=== PATIENT | female | born 1965 | race African-American/Black ===

== ENCOUNTER 2019-08-03 10:20 | Inpatient (IN) | payer OTHER ==
[2019-08-03] MEDS ORDERED: HYDROmorphone INJ1* 1 MG/ML SYRINGE IV SLOW PU ONE ×2 (10:40→13:59)
[2019-08-03] MEDS ORDERED: NS 0.9% 1000 ML** 1,000 ML IV ONE (10:40)
[2019-08-03] MEDS ORDERED: Ondansetron INJ* 2 MG/ML VIAL IV ONE ×2 (10:40→13:59)
--- NOTE | 2019-08-03 10:46 | ED ---
Abdominal Pain/Female - HPI Summary HPI Summary: 53 y/o female presented to [facility] complaining of generalized abd pain characterized as similar to a cramp or gaseous pressure beginning between 0100 and 0200 08/03/19. Patient has not experienced vomiting and diarrhea but has had intermittent nausea. She has a decreased appetite, noting that her stomach begins to feel bloated and full whenever she does. Bowel movements have been normal. Patient states that changing positions shifts the pain but movement and drinking fluids do not make the condition worse. Patient claims that she is prone to stomach viruses but has not had one in "a while." She also notes a history of gallstones. - History of Current Complaint Chief Complaint: EDNauseaVomitDiarrh Stated Complaint: SEVERE ABDOMINAL PAIN PER PT Time Seen by Provider: 08/03/19 10:32 Hx Obtained From: Patient Onset/Duration: Lasting Hours, Still Present Timing: Hours Severity Initially: Severe Severity Currently: Severe Pain Intensity: 10 Pain Scale Used: 0-10 Numeric Location: Diffuse Character: Cramping, Other: - "like a gas bubble" Associated Signs and Symptoms: Positive: Nausea. Negative: Constipation, Vomiting, Diarrhea Allergies/Adverse Reactions: Allergies Allergy/AdvReac Type Severity Reaction Status Date / Time erythromycin base AdvReac Intermediate GI Upset Verified 05/26/19 17:22 PMH/Surg Hx/FS Hx/Imm Hx Endocrine/Hematology History: Reports: Hx Diabetes Cardiovascular History: Reports: Hx Hypercholesterolemia Denies: Hx Angina, Hx Coronary Artery Disease, Hx Hypertension, Hx Myocardial Infarction Respiratory History: Denies: Hx Asthma, Hx Chronic Obstructive Pulmonary Disease (COPD) - Cancer History Hx Chemotherapy: No Hx Radiation Therapy: No - Surgical History Surgery Procedure, Year, and Place: HYSTERECTOMY, MYOMECTOMY (PRIOR TO HYSTERECTOMY), FINGER TENDON RUPTURE REPAIR Infectious Disease History: No Infectious Disease History: Denies: Traveled Outside the [place] in Last 30 Days - Family History Known Family History: Positive: Hypertension, Diabetes - Social History Alcohol Use: None Substance Use Type: Reports: None Smoking Status (MU): Never Smoked Tobacco Have You Smoked in the Last Year: No Review of Systems Negative: Fever - vitals show temp at 97.5F Gastrointestinal: Other - positive - decreased appetite Positive: Abdominal Pain - cramping, "gas bubble", Nausea. Negative: Vomiting, Diarrhea All Other Systems Reviewed And Are Negative: Yes Physical Exam - Summary Physical Exam Summary: Appearance: The patient is well-nourished in no acute distress and in no acute pain. Skin: The skin is warm and dry, and skin color reflects adequate perfusion. HEENT: The head is normocephalic and atraumatic. The pupils are equal and reactive. The conjunctivae are clear and without drainage. Nares are patent and without drainage. Mouth reveals moist mucous membranes, and the throat is without erythema and exudate. The external ears are intact. The ear canals are patent and without drainage. The tympanic membranes are intact. Neck: The neck is supple with full range of motion and non-tender. There are no carotid bruits. There is no neck vein distension. Respiratory: Chest is non-tender. Lungs are clear to auscultation and breath sounds are symmetrical and equal. Cardiovascular: Heart is regular rate and rhythm. There is no murmur or rub auscultated. There is no peripheral edema and pulses are symmetrical and equal. Abdomen: Diffuse tenderness is present. There are normal bowel sounds heard in all four quadrants and there is no organomegaly palpated. Musculoskeletal: There is no back tenderness noted. Extremities are non-tender with full range of motion. There is good capillary refill. There is no peripheral edema or calf tenderness elicited. Neurological: Patient is alert and oriented to person, place and time. The patient has symmetrical motor strength in all four extremities. Cranial nerves are grossly intact. Deep tendon reflexes are symmetrical and equal in all four extremities. Psychiatric: The patient has an appropriate affect and does not exhibit any anxiety or depression. Triage Information Reviewed: Yes Vital Signs On Initial Exam: Initial Vitals Temp Pulse Resp BP Pulse Ox 97.5 F 71 18 159/83 100 08/03/19 10:24 08/03/19 10:24 08/03/19 10:24 08/03/19 10:24 08/03/19 10:24 Vital Signs Reviewed: Yes Procedures - Sedation Patient Received Moderate/Deep Sedation with Procedure: No Diagnostics - Vital Signs Vital Signs Temp Pulse Resp BP Pulse Ox 08/03/19 10:24 97.5 F 71 18 159/83 100 - Laboratory Result Diagrams: 08/04/19 05:04 08/04/19 05:04 Lab Statement: Any lab studies that have been ordered have been reviewed, and results considered in the medical decision making process. - CT abdominal/pelvis CT Interpretation Completed By: Radiologist Summary of CT Findings: IMPRESSION: 1. Cholelithiasis. 2. There is hyperattenuating material extending from the anterior-inferior margin of the. gallbladder communicating with acute inflammatory change surrounding adjacent loops of. right upper quadrant small bowel (sagittal image 44). CT findings could be consistent with. gallstone ileus in the correct clinical setting. 3. There is also a small pocket of ascites in the left lower quadrant which is either. related to the right upper quadrant process or, alternatively the patient is suffering. from a primary infectious/inflammatory disease of the small bowel. Evaluation of the. gastrointestinal tract is limited in the absence of oral contrast limiting determination. of wall thickening and contour of the endothelium lining. 4. Small bibasilar pleural effusions. This report was reviewed by the ED physician. - Ultrasound gallbladder Ultrasound Interpretation Completed By: Radiologist Summary of Ultrasound Findings: IMPRESSION: 1. Sonographic findings are consistent with cholecystitis including pathologically. thickened gallbladder wall and trace pericholecystic fluid. 2. Corresponding to the same day CT imaging, there is what appears to be a tract extending. anteriorly and inferiorly from the gallbladder lumen. This structure is incompletely. visualized due to shadowing from the neighboring gallstones. This report was reviewed by the ED physician. Abdominal Pain Fem Course/Dx - Course Course Of Treatment: She was placed on a monitor, given Dilaudid and Zofran for her symptoms and labs were obtained. Her labs are generally unremarkable and on reexamination she did not have any relief from her pain medication. CT scan was obtained at that point and revealed a possible gallstone ileus. I spoke with Dr. Dalal came to the department and evaluate her. Ultimately he admitted her. - Diagnoses Provider Diagnoses: Abdominal pain - Provider Notifications Discussed Care Of Patient With: Jony Dalal Time Discussed With Above Provider: 14:07 Instructed by Provider To: Will See In ED - Dr. Dalal evaluated the patient in the ED. After evaluation Dr. Dalal accepted the patient into his services. Discharge ED - Sign-Out/Discharge Documenting (check all that apply): Patient Departure - admit - Discharge Plan Condition: Stable Disposition: ADMITTED TO [facility] - Billing Disposition and Condition Condition: STABLE Disposition: Admitted to [facility] - Attestation Statements Document Initiated by Scribe: Yes Documenting Scribe: BRANDON DEVRIES Provider For Whom Scribe is Documenting (Include Credential): ELPIDIO MIGUEL MD Scribe Attestation: I, BRANDON DEVRIES, scribed for ELPIDIO MIGUEL MD on 08/04/19 at 1450. Scribe Documentation Reviewed: Yes Provider Attestation: The documentation as recorded by the scribeBRANDON accurately reflects the service I personally performed and the decisions made by me, ELPIDIO MIGUEL MD Status of Scribe Document: Viewed
[2019-08-03 10:59] LABS: ABS Lymphocytes 1.5 10^3/ul (1.0-4.8); ABS Monocytes 0.3 10^3/ul (0-0.8); ABS Neutrophils 5.5 10^3/ul (1.5-7.7); Eosinophil % 0.2 %; Hematocrit 39 % (35-47); Hemoglobin 13.3 g/dL (12.0-16.0); Lymphocyte % 21.1 %; Mean Corpuscular HGB Conc 34 g/dL (31-36); Mean Corpuscular Hemoglobin 32 pg (27-31); Mean Corpuscular Volume 93 fL (80-97); Platelet Count 172 10^3/uL (150-450); Red Blood Count 4.17 10^6 /uL (3.70-4.87); Red Cell Distribution Width 13 % (10-15); White Blood Count 7.4 10^3/uL (3.5-10.8)
[2019-08-03 11:15] LABS: ALT 10 U/L (7-52); AST 12 U/L (13-39); Albumin 4.2 g/dL (3.2-5.2); Albumin/Globulin Ratio 1.4 (1-3); Alkaline Phosphatase 94 U/L (34-104); Anion Gap 8 mmol/L (2-11); BUN/Creatinine Ratio 11.5 (8-20); Blood Urea Nitrogen 9 mg/dL (6-24); C Reactive Protein 5.15 mg/L (<8.01); CO2 Carbon Dioxide 26 mmol/L (22-32); Calcium 8.5 mg/dL (8.6-10.3); Chloride 105 mmol/L (101-111); EGFR African American 94.2 (>60); EGFR Non-African American 77.9 (>60); Glucose 236 mg/dL (70-100); Potassium 3.4 mmol/L (3.5-5.0); Sodium 139 mmol/L (135-145); Total Protein 7.2 g/dL (6.4-8.9)
[2019-08-03] MEDS ORDERED: Dextrose 50% VIAL 50 ml IV PUSH PRN (15:55)
[2019-08-03] MEDS ORDERED: ZOSYN 3.375 GM x ONE DOSE over 30 miuntes IVPB ×2 (17:00)
--- NOTE | 2019-08-03 17:24 | CONS ---
HOSPITAL MEDICINE CONSULTATION REPORT: DATE OF CONSULT: 08/03/19 PROVIDER: Jasmina Harp NP ATTENDING PHYSICIAN: Dr. Dalal. CONSULTING PHYSICIAN: Dr. Serena Munoz (dictated by Jasmina Harp NP). REASON FOR CONSULT: Co-management of diabetes. HISTORY OF PRESENT ILLNESS: Ms. Boss is a 53-year-old female with past medical history significant for diabetes and high cholesterol who presented to the emergency room with complaints of abdominal pain, nausea, vomiting since 1 a.m. The patient denied any black or coffee-ground emesis. Denies any black or tarry stools. She reports nothing makes the pain better or worse. She does report that she has had intermittent diarrhea with certain types of foods. Currently complains of generalized abdominal pain. The patient was seen and evaluated by the emergency room and Dr. Dalal and was found to have gallstones. She was admitted by Surgery. Please see H and P from Dr. Dalal for complete details. Due to the patient's history of diabetes, Hospital Medicine was asked to see and evaluate the patient in consultation. PAST MEDICAL HISTORY: Significant for: 1. Type 2 diabetes, [id number]. 2. Hypercholesterolemia. PAST SURGICAL HISTORY: 1. Myomectomy. 2. Hysterectomy. HOME MEDICATIONS: 1. Metformin 500 mg p.o. b.i.d. 2. Januvia 100 mg p.o. daily. 3. Simvastatin 5 mg p.o. daily. 4. Progesterone 100 mg p.o. daily. 5. BuSpar 5 mg p.o. daily p.r.n. ALLERGIES: No known drug allergies. FAMILY HISTORY: Unknown as the patient was adopted. SOCIAL HISTORY: The patient denies any tobacco, alcohol, or illicit drug use. She is single. She lives alone. Surrogate decision maker in the event she is unable to make her own decisions is her friend, Melissa. She is a full code. REVIEW OF SYSTEMS: She denies any fever, chills, unintended weight loss, chest pain, or edema. No cough, hemoptysis, or shortness of breath. She does report nausea, vomiting. She had diarrhea yesterday and diffuse abdominal pain. No gross hematuria, dysuria, focal weakness, sensory loss, visual complaints, dysphagia, arthralgias, myalgias, rashes, lesions, open sores, psychosis, or anxiety. PHYSICAL EXAM: General: At this time, Ms. Boss is a 53-year-old female. She is alert and oriented x3. She is in no acute distress. Vital Signs: Blood pressure 159/83, heart rate 71, respirations 18, O2 saturation 100%, temperature was 97.5. HEENT: Head is atraumatic, normocephalic. Eyes: EOMs are intact. Sclerae anicteric and not pale. Oral mucosa appeared to be moist. Neck is supple. Lungs are clear to auscultation bilaterally. No wheezes, rales, or rhonchi. Cardiac: S1, S2. Regular rate and rhythm. No murmurs, rubs , or gallops. Abdomen with diffuse tenderness. Bowel sounds are active x4. Extremities: She is able to move all 4 extremities. There is no clubbing or cyanosis. Neurologic: She is awake, alert, oriented x3. Speech is clear. Thought process is intact. There are no gross focal deficits. Skin is intact. DIAGNOSTIC STUDIES/LAB DATA: WBCs were 7.4, RBCs 4.17, hemoglobin 13.3, hematocrit was 39, platelet count 172. Sodium 139, potassium 3.4, chloride 105 , carbon dioxide was 26, anion gap was 8, BUN was 9, creatinine 0.78, glucose 236, lactic acid 1.8, calcium 8.5. Total bilirubin 0.50, ASTs were 12, ALTs were 10, alkaline phosphatase was 94. C-reactive protein was 5.15. Lipase was less than 10. She had a CT of the abdomen and pelvis, radiologist's impression: Cholelithiasis. There is hyperattenuating material extending from the anterior- inferior margin of the gallbladder communicating with acute inflammatory changes surrounding adjacent loops of the right upper quadrant small bowel. CT findings could be consistent with gallstone ileus in the correct clinical setting. There is also a small pocket of ascites in the left lower quadrant, which could be either related to right upper quadrant process or alternatively the patient is suffering from primary infectious/inflammatory disease of the small bowel. Evaluation of the gastrointestinal tract is limited with absence of oral contrast. Small bibasilar pleural effusion. IMPRESSION AND PLAN: Ms. Boss is a 53-year-old female with past medical history significant for type 2 diabetes and hypercholesterolemia, who presented to the emergency room with abdominal pain, nausea and vomiting and was found to have cholelithiasis. She was admitted by Surgery. Our recommendations are as follows: 1. Abdominal pain/cholelithiasis. Management per Surgery. Pain management per Surgery. DVT prophylaxis per Surgery. 2. Type 2 diabetes. The patient will be placed on fingersticks every 6 hours with lispro sliding scale. 3. Hypercholesterolemia. I would hold her atorvastatin at this time and can resume as able. 4. FEN: She is n.p.o. as per Surgery. 5. Code status: She is a full code. 6. DVT prophylaxis: As per Surgery. TIME SPENT: Time spent on this consultation was 45 minutes, greater than half that time was spent at the bedside reviewing events leading thus far to her hospitalization, performing physical exam, and reviewing my plan of care. I have discussed this with my attending, Dr. Serena Munoz; she is in agreement with my plan. JASMINA HARP, KAMI [id number]/CPS #: [id number] LINDEN
[2019-08-03] MEDS: Ondansetron INJ* 2 MG/ML VIAL IV PRN (17:29)
[2019-08-03] MEDS: HYDROmorphone INJ1* 1 MG/ML SYRINGE IV SLOW PU PRN ×2 (17:29→20:47)
[2019-08-03] MEDS: NS 0.9% 1000 ML** 1,000 ML IV SCH (17:35)
--- NOTE | 2019-08-03 18:05 | HP ---
CC: [facility]; Bin Carranza NP with [facility] Internal Medicine; [facility], Attn Dr. Henri Garcia ADMISSION HISTORY AND PHYSICAL: DATE OF ADMISSION: 08/03/19 REASON FOR ADMISSION: Abdominal pain with nausea and vomiting. HISTORY OF PRESENT ILLNESS: Ms. Sariah Boss is a 53-year-old woman with history of diabetes, who presented to the emergency room today with a main complaint of worsening abdominal discomfort that has been present over the past several months. She has been seen in the last several months down at the [facility] for bariatric evaluation. She states she has developed abdominal bloating after eating with rather severe pain, followed by diarrhea which improves her discomfort. This happens approximately 75% of the time after eating meals. It does not seem to bother her at night, but she may wake up in the morning with discomfort. She has had no blood per rectum or melena. She does not feel that she has been losing weight, has not had any significant problems with her blood sugar management. Part of her bariatric evaluation included an upper endoscopy with Dr. David Brumfield in May 2019, which was unremarkable. In addition, she underwent an ultrasound of her gallbladder for routine evaluation, which showed several large shadowing gallstones and although the gallbladder was somewhat contracted , the wall appeared to be thickened, but there were no other acute findings, i.e., biliary dilatation or pericholecystic fluid. On presentation to the emergency room today, she was noted to be afebrile with no tachycardia. Laboratory workup showed there was normal white blood cell count of 7.4. There was no anemia. Platelet count was unremarkable. Electrolytes were unremarkable other than potassium at 3.4. Blood sugar 236. Lactic acid is 1.8. The LFTs including total bilirubin and alkaline phosphatase , as well as C-reactive protein and lipase were all normal. She underwent a CT scan of abdomen and pelvis. This was done without oral or IV contrast. I did review these images with Dr. Laws from Radiology. There appears to be several large calcified gallstones within the gallbladder and towards the top of the gallbladder laterally and anteriorly, small bowel that is in close opposition to the gallbladder with possible inflammation of the small intestine with some fluid between the loops of small bowel. There is no extraluminal air. There is no bowel distention or sign of obstruction. Also noted was some loculated fluid in the left lower quadrant within the loops of small bowel. There was no pelvic fluid or free extraluminal air. Surgical consultation was obtained. PAST MEDICAL HISTORY: 1. Diabetes mellitus. 2. Anxiety. PAST SURGICAL HISTORY: Open hysterectomy 4 years ago, in [place]. This was initially attempted with a laparoscope. ALLERGIES: To ERYTHROMYCIN BASE. FAMILY HISTORY: Otherwise noncontributory. SOCIAL HISTORY: She does not smoke or drink. She is single. 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 REVIEW OF SYSTEMS: She gives no history of weight loss. Her blood sugar has been well controlled. Appetite has been good. She has noted no jaundice. She has had no fevers, shakes, or chills. PHYSICAL EXAMINATION GENERAL: She is a well-developed, well-nourished female, appears to be somewhat uncomfortable due to nausea, but is awake, alert, and conversant and very pleasant. VITAL SIGNS: Temperature 97.5, pulse 71, blood pressure 159/83, respirations 18. HEENT: Sclerae are anicteric. Oral mucosa is slightly dry. LUNGS: Clear to auscultation with normal respiratory effort. HEART: Regular rate and rhythm without murmurs, rubs, or gallops. ABDOMEN: Soft, but slightly distended. She has a well-healed midline incision from the umbilicus down to the pubis without hernia. There were several laparoscopic incisions in the upper abdomen. She had bowel sounds that were present, but slightly hypoactive throughout. She has mild generalized abdominal tenderness, but no rebound, guarding, or peritoneal irritation. EXTREMITIES: Showed no cyanosis or edema. PSYCHIATRIC: She is awake, alert, and oriented x3. She has normal judgment and insight. IMPRESSION: Abdominal pain, which has been of an intermittent nature over the past several months. It seems to be worsening over the past several weeks. She describes discomfort after eating, which is quite severe and causes bloating with nausea, which is mostly relieved with loose watery bowel movements. Workup as per above shows calcified gallstones with possible cholecystitis or inflammation of surrounding small intestine in the right upper quadrant as well as some fluid between several loops of the small bowel in the left lower quadrant remote from the right upper quadrant. Laboratory workup is normal. It is difficult to determine the etiology of her recent symptoms and discomfort. This may all be related to the gallstones and she may have a component of cholecystitis. Another concern per Radiology would be involvement of the small bowel with a fistulous tract between the gallbladder and small intestine, which is certainly less likely and there certainly appears to be no evidence of obstruction or gallstone ileus. PLAN: At this point, 1. She will be admitted to the surgical service. 2. Hospitalist consult will be obtained for diabetic management. 3. She will started on IV antibiotics as well as IV fluids and kept n.p.o. 4. Ultrasound of the right upper quadrant is going to be obtained today. 5. Tentative plan will be diagnostic laparoscopy with possible cholecystectomy tomorrow depending on the workup and her clinical course. I discussed all of this with her in detail and she is aware and agrees with the plan. [id number]/CPS #: [id number] LINDEN
[2019-08-03] MEDS: Insulin LISPRO* 1 UNITS UNIT SUBCUT SCH ×2 (18:52→23:23)
[2019-08-03] MEDS: PROCHLORPERAZINE INJ 5 MG/ML 2 ML VIAL IV PRN (20:55)
[2019-08-03] MEDS: Piperacillin/Tazobactam VIAL*) 3.375 GM in NS 0.9% 100 ML* 100 ML IVPB SCH (22:04)
[2019-08-03 23:05] LABS: Urine Appearance Clear; Urine Bilirubin Negative (Negative); Urine Blood Negative (Negative); Urine Color Yellow; Urine Glucose 3+(>=500 mg/dL) (Negative); Urine Ketones 1+ (Negative); Urine Nitrite Negative (Negative); Urine Protein Negative (Negative); Urine Urobilinogen Negative (Negative)
[2019-08-04] MEDS: Ondansetron INJ* 2 MG/ML VIAL IV PRN ×3 (01:01→18:29)
[2019-08-04] MEDS: HYDROmorphone INJ1* 1 MG/ML SYRINGE IV SLOW PU PRN ×4 (01:03→19:03)
[2019-08-04] MEDS: NS 0.9% 1000 ML** 1,000 ML IV SCH ×2 (02:12→20:07)
[2019-08-04] MEDS: Piperacillin/Tazobactam VIAL*) 3.375 GM in NS 0.9% 100 ML* 100 ML IVPB SCH ×2 (04:55→15:01)
[2019-08-04] MEDS: Insulin LISPRO* 1 UNITS UNIT SUBCUT SCH ×3 (05:03→19:14)
[2019-08-04 05:14] LABS: ABS Lymphocytes 1.4 10^3/ul (1.0-4.8); ABS Monocytes 0.5 10^3/ul (0-0.8); ABS Neutrophils 7.2 10^3/ul (1.5-7.7); Hematocrit 35 % (35-47); Lymphocyte % 15.3 %; Mean Corpuscular HGB Conc 34 g/dL (31-36); Mean Corpuscular Hemoglobin 32 pg (27-31); Mean Corpuscular Volume 94 fL (80-97); Mean Platelet Volume 10.1 fL (7.4-10.4); Nucleated Red Blood Cells % 0.1; Platelet Count 169 10^3/uL (150-450); Red Blood Count 3.73 10^6 /uL (3.70-4.87); Red Cell Distribution Width 13 % (10-15); White Blood Count 9.2 10^3/uL (3.5-10.8)
[2019-08-04] MEDS: PROCHLORPERAZINE INJ 5 MG/ML 2 ML VIAL IV PRN (05:37)
[2019-08-04 05:45] LABS: ALT 10 U/L (7-52); AST 9 U/L (13-39); Albumin 3.9 g/dL (3.2-5.2); Albumin/Globulin Ratio 1.5 (1-3); Alkaline Phosphatase 87 U/L (34-104); Anion Gap 7 mmol/L (2-11); BUN/Creatinine Ratio 9.7 (8-20); Blood Urea Nitrogen 6 mg/dL (6-24); C Reactive Protein 6.11 mg/L (<8.01); CO2 Carbon Dioxide 24 mmol/L (22-32); Calcium 7.7 mg/dL (8.6-10.3); Chloride 107 mmol/L (101-111); EGFR African American 122.8 (>60); EGFR Non-African American 101.5 (>60); Globulin 2.6 g/dL (2-4); Glucose 189 mg/dL (70-100); Potassium 3.4 mmol/L (3.5-5.0); Sodium 138 mmol/L (135-145); Total Protein 6.5 g/dL (6.4-8.9)
--- NOTE | 2019-08-04 08:36 | PN ---
Progress Note - Progress Note Date of Service: 08/04/19 SOAP: Subjective: NAD Denies emesis since yesterday, - flatus - bm, C/O abdominal pain [] Objective: Vital Signs Temp 99.1 F 08/04/19 07:31 Pulse 69 08/04/19 07:31 Resp 16 08/04/19 07:40 BP 140/73 08/04/19 07:31 Pulse Ox 92 08/04/19 07:31 Intake & Output 08/03/19 08/04/19 08/04/19 18:59 06:59 18:59 Intake Total 1000 1091 Output Total 725 Balance 1000 366 Weight 177 lb Intake: IV Fluids 1000 1091 ABX - ZOSYN 101 NS (0.9%) 990 Output: Urine 650 Emesis 75 Sodium 138 mmol/L (135-145) 08/04/19 05:04 Potassium 3.4 mmol/L (3.5-5.0) L 08/04/19 05:04 BUN 6 mg/dL (6-24) 08/04/19 05:04 Creatinine 0.62 mg/dL (0.51-0.95) 08/04/19 05:04 Calcium 7.7 mg/dL (8.6-10.3) L 08/04/19 05:04 AST 9 U/L (13-39) L 08/04/19 05:04 ALT 10 U/L (7-52) 08/04/19 05:04 PEX Gen NAD Chest: CTA CVS: RRR Abd: tender throughout, Right > Left Ext: calves soft, non tender [] Assessment: 53 yo female with nausea, vomiting, cholelithiasis, [] Plan: Contnue NPO, d/c torre, straight cath PRN, Protonix 40mg Daily, possible OR Tomorrow ex lap. []
[2019-08-04] MEDS: Pantoprazole IV* 40 MG IV SCH (09:57)
--- NOTE | 2019-08-04 09:57 | PN ---
Progress Note - Progress Note Date of Service: 08/04/19 SOAP: Subjective: Still having generalized abdominal pain No appetite, nausea improved No flatus or BM Ambulating around room Objective: Temp Pulse Resp BP Pulse Ox 99.1 F 69 16 140/73 92 08/04/19 07:31 08/04/19 07:31 08/04/19 07:40 08/04/19 07:31 08/04/19 07:31 Intake & Output 08/02/19 08/03/19 08/04/19 08/05/19 06:59 06:59 06:59 06:59 Intake Total 1 Output Total 725 Balance 1366 Weight 177 lb Intake: IV Fluids 2090 ABX - ZOSYN 101 NS (0.9%) 990 Output: Urine 650 Emesis 75 PEX: Comfortable, awake and alert Lungs are clear Cor is RRR Abd is soft and slightly distended. Bowel sounds are present. Generalized abdominal pain on deeper palpation-no peritoneal irritation. Ext without edema Laboratory Results - last 24 hr 08/03/19 08/03/19 08/03/19 10:51 10:51 10:52 WBC 7.4 RBC 4.17 Hgb 13.3 Hct 39 MCV 93 MCH 32 H MCHC 34 RDW 13 Plt Count 172 MPV 10.0 Neut % (Auto) 74.9 Lymph % (Auto) 21.1 [place] % (Auto) 3.4 Eos % (Auto) 0.2 Baso % (Auto) 0.4 Absolute Neuts (auto) 5.5 Absolute Lymphs (auto) 1.5 Absolute Monos (auto) 0.3 Absolute Eos (auto) 0.0 Absolute Basos (auto) 0.0 Absolute Nucleated RBC 0.0 Nucleated RBC % 0.0 Sodium 139 Potassium 3.4 L Chloride 105 Carbon Dioxide 26 Anion Gap 8 BUN 9 Creatinine 0.78 Est GFR ( Amer) 94.2 Est GFR (Non-Af Amer) 77.9 BUN/Creatinine Ratio 11.5 Glucose 236 H POC Glucose (mg/dL) Lactic Acid 1.8 Calcium 8.5 L Total Bilirubin 0.50 AST 12 L ALT 10 Alkaline Phosphatase 94 C-Reactive Protein 5.15 Total Protein 7.2 Albumin 4.2 Globulin 3.0 Albumin/Globulin Ratio 1.4 Lipase < 10 L Urine Color Urine Appearance Urine pH Ur Specific [place] Urine Protein Urine Ketones Urine Blood Urine Nitrate Urine Bilirubin Urine Urobilinogen Ur Leukocyte Esterase Urine Glucose 08/03/19 08/03/19 08/03/19 17:36 22:41 22:42 WBC RBC Hgb Hct MCV MCH MCHC RDW Plt Count MPV Neut % (Auto) Lymph % (Auto) [place] % (Auto) Eos % (Auto) Baso % (Auto) Absolute Neuts (auto) Absolute Lymphs (auto) Absolute Monos (auto) Absolute Eos (auto) Absolute Basos (auto) Absolute Nucleated RBC Nucleated RBC % Sodium Potassium Chloride Carbon Dioxide Anion Gap BUN Creatinine Est GFR ( Amer) Est GFR (Non-Af Amer) BUN/Creatinine Ratio Glucose POC Glucose (mg/dL) 249 H 224 H Lactic Acid Calcium Total Bilirubin AST ALT Alkaline Phosphatase C-Reactive Protein Total Protein Albumin Globulin Albumin/Globulin Ratio Lipase Urine Color Yellow Urine Appearance Clear Urine pH 5.0 Ur Specific [place] 1.020 Urine Protein Negative Urine Ketones 1+ A Urine Blood Negative Urine Nitrate Negative Urine Bilirubin Negative Urine Urobilinogen Negative Ur Leukocyte Esterase Negative Urine Glucose 3+(>=500 mg/dl) A 08/04/19 08/04/19 05:04 05:04 WBC 9.2 RBC 3.73 Hgb 12.0 Hct 35 MCV 94 MCH 32 H MCHC 34 RDW 13 Plt Count 169 MPV 10.1 Neut % (Auto) 78.5 Lymph % (Auto) 15.3 [place] % (Auto) 5.7 Eos % (Auto) 0.0 Baso % (Auto) 0.5 Absolute Neuts (auto) 7.2 Absolute Lymphs (auto) 1.4 Absolute Monos (auto) 0.5 Absolute Eos (auto) 0.0 Absolute Basos (auto) 0.0 Absolute Nucleated RBC 0.0 Nucleated RBC % 0.1 Sodium 138 Potassium 3.4 L Chloride 107 Carbon Dioxide 24 Anion Gap 7 BUN 6 Creatinine 0.62 Est GFR ( Amer) 122.8 Est GFR (Non-Af Amer) 101.5 BUN/Creatinine Ratio 9.7 Glucose 189 H POC Glucose (mg/dL) Lactic Acid Calcium 7.7 L Total Bilirubin 0.60 AST 9 L ALT 10 Alkaline Phosphatase 87 C-Reactive Protein 6.11 Total Protein 6.5 Albumin 3.9 Globulin 2.6 Albumin/Globulin Ratio 1.5 Lipase < 10 L Urine Color Urine Appearance Urine pH Ur Specific [place] Urine Protein Urine Ketones Urine Blood Urine Nitrate Urine Bilirubin Urine Urobilinogen Ur Leukocyte Esterase Urine Glucose US 08/03 reviewed--gallstones with some thickening of gallbladder wall and some fluid. Also, once again concern for ?? communication with small bowel anteriorly. Assessment: Abdominal pain-chronic over the past 2-3 months now worsening over past several days. Normal lab work-up, no fever or tachycardia. Exam with generalized pain without peritonitis, no signs of sepsis. CT reviewed as noted in admission note. ?? exact etiology of pain--most likely gallbladder [id number] presence of small amount of fluid in right upper quadrant and LLQ is unusual for cholecystitis. EGD was normal. Colon appears normal. No evidence of obstruction, no extraluminal air. I discussed this with her once again this morning. I feel the most appropriate next step in management is laparoscopy with cholecystectomy and possible laparotomy depending on findings. I don't think there is any more pre-operative work-up indicated that would be helpful or need for GI consultation. After our discussion, she agrees to proceed with surgery. This will be planned for tomorrow. Plan: Diagnostic laparoscopy, laproscopic cholecystectomy, possible exploratory laparotomy tomorrow. Discussed procedure with her in detail and the risks of, but not limited to, of bleeding, infection, abscess, open procedure, bile duct injury, injury to peritoneal and retroperitoneal structures, bowel resection, blood clots, anesthesia were all explained. Continue IVF today IV Zosyn PPI Appreciate medical consultation regarding DM
[2019-08-04] MEDS: KCL 20 MEQ/100 ML IVPREMIX* 20 MEQ/100 ML BAG IV SCH ×2 (10:42→20:07)
--- NOTE | 2019-08-04 11:08 | PN ---
Subjective Date of Service: 08/04/19 Interval History: Patient complains of RUQ pain with extension into the epigastric and RLQ areas. Patient states it is better with the pain medication, but that it is still severe. Patient denies CP, N/V, F/C, dysuria, dizziness on standing, or other pain. Patient has no functional limitations at baseline. Family History: Unchanged from Admission Social History: Unchanged from Admission Past Medical History: Unchanged from Admission Objective Active Medications: Dextrose (Dextrose 50% Vial 50 Ml*) 25 ml IV PUSH .FOR FS < 60 - SS PRN PRN Reason: FS < 60 Hydromorphone HCl (Dilaudid Inj1s*) 1 mg IV SLOW PU Q1H PRN PRN Reason: PAIN - SEVERE Last Admin: 08/04/19 10:43 Dose: 1 mg Sodium Chloride (Ns 0.9% 1000 Ml) 1,000 mls @ 125 mls/hr IV PER RATE [facility] Last Admin: 08/04/19 02:12 Dose: 125 mls/hr Piperacillin Sod/Tazobactam (Sod 3.375 gm/ Sodium Chloride) 100 mls @ 25 mls/ hr IVPB Q8H [facility] Last Admin: 08/04/19 04:55 Dose: 25 mls/hr Potassium Chloride (Potassium Chloride 20 Meq/100 Ml Ivpremix*) 20 meq in 100 mls @ 50 mls/hr IV Q2H [facility] Stop: 08/04/19 14:59 Last Admin: 08/04/19 10:42 Dose: 25 mls/hr Insulin Human Lispro (Humalog*) 0 units SUBCUT Q6HR [facility]; Protocol Last Admin: 08/04/19 05:03 Dose: 2 units Ondansetron HCl (Zofran Inj*) 4 mg IV Q4H PRN PRN Reason: NAUSEA/VOMITING Last Admin: 08/04/19 09:56 Dose: 4 mg Pantoprazole Sodium (Protonix Iv*) 40 mg IV Q24H [facility] Last Admin: 08/04/19 09:57 Dose: 40 mg Prochlorperazine Edisylate (Compazine Inj*) 10 mg IV Q6H PRN PRN Reason: NAUSEA/VOMITING Last Admin: 08/04/19 05:37 Dose: 10 mg Vital Signs - 8 hr 08/04/19 08/04/19 08/04/19 03:42 05:39 06:45 Temperature 99.1 F Pulse Rate 65 Respiratory 16 16 14 Rate Blood Pressure 139/77 (mmHg) O2 Sat by Pulse 92 Oximetry 08/04/19 08/04/19 08/04/19 07:31 07:40 10:43 Temperature 99.1 F Pulse Rate 69 Respiratory 16 16 16 Rate Blood Pressure 140/73 (mmHg) O2 Sat by Pulse 92 Oximetry Oxygen Devices in Use Now: None Appearance: Patient is a 53yo female who appears stated age and is sitting in the bed in NAD. Eyes: No Scleral Icterus, PERRLA Ears/Nose/Mouth/Throat: NL Teeth, Lips, Gums, Clear Oropharnyx, Mucous Membranes Moist Neck: NL Appearance and Movements; NL JVP, Trachea Midline Respiratory: Symmetrical Chest Expansion and Respiratory Effort, Clear to Auscultation Cardiovascular: NL Sounds; No Murmurs; No JVD, RRR, No Edema Abdominal: No Hepatosplenomegaly, - - Hypoactive bowel sounds. Tender to palpation in RUQ and RLQ without rebound or guarding. Lymphatic: No Cervical Adenopathy Extremities: No Edema, No Clubbing, Cyanosis Skin: No Rash or Ulcers, No Nodules or Sclerosis Neurological: Alert and Oriented x 3, NL Sensation, NL Muscle Strength and Tone , - - CN II-XII intact. Result Diagrams: 08/04/19 05:04 08/05/19 05:29 Assess/Plan/Problems-Billing Assessment: Patient is a 53yo female with a PMH for DM II, here with acute cholecystitis who is scheduled for surgery tomorrow. - Patient Problems (1) Acute cholecystitis Current Visit: Yes Status: Acute Code(s): K81.0 - ACUTE CHOLECYSTITIS SNOMED Code(s): 78068930 Comment: - Confirmed on GB US - Planned for surgery tomorrow - NPO, Pain control, Zosyn - Patient's RCRI is 0 indicating a 3.9% risk of MACE at 30 days. Patient has no cardiopulmonary funtional limitations and is capable of >4 METS. Patient is a low risk for this low risk surgery and is medically optimized without further cardiac testing. (2) DM II (diabetes mellitus, type II), controlled Current Visit: Yes Status: Acute Code(s): E11.9 - TYPE 2 DIABETES MELLITUS WITHOUT COMPLICATIONS SNOMED Code(s): 62712279 Comment: - Treated with SSI Q6H while NPO - Resume oral meds at D/C - Continue bariatric evaluation. (3) DVT prophylaxis Current Visit: Yes Status: Acute Code(s): Z29.9 - ENCOUNTER FOR PROPHYLACTIC MEASURES, UNSPECIFIED SNOMED Code(s): 332399628 Comment: - Low risk, Encourage Ambulation and SCDs (4) Full code status Current Visit: Yes Status: Acute Code(s): Z78.9 - OTHER SPECIFIED HEALTH STATUS SNOMED Code(s): 943052899 Status and Disposition: Observation pending Aissatou
[2019-08-05] MEDS: Insulin LISPRO* 1 UNITS UNIT SUBCUT SCH ×4 (00:06→20:09)
[2019-08-05] MEDS: Piperacillin/Tazobactam VIAL*) 3.375 GM in NS 0.9% 100 ML* 100 ML IVPB SCH ×4 (00:47→23:45)
[2019-08-05 05:56] LABS: Albumin 3.8 g/dL (3.2-5.2); Albumin/Globulin Ratio 1.4 (1-3); BUN/Creatinine Ratio 7.1 (8-20); EGFR African American 106.7 (>60); EGFR Non-African American 88.2 (>60); Globulin 2.8 g/dL (2-4); Potassium 3.2 mmol/L (3.5-5.0); Total Bilirubin 1.1 mg/dL (0.2-1.0); Total Protein 6.6 g/dL (6.4-8.9)
[2019-08-05] MEDS: Ondansetron INJ* 2 MG/ML VIAL IV PRN (07:06)
[2019-08-05] MEDS: KCL 20 MEQ/100 ML IVPREMIX* 20 MEQ/100 ML BAG IV SCH ×3 (07:18→12:56)
[2019-08-05] MEDS: NS 0.9% 1000 ML** 1,000 ML IV SCH ×2 (08:36→19:54)
[2019-08-05] MEDS: Pantoprazole IV* 40 MG IV SCH (09:40)
[2019-08-05] MEDS: PROCHLORPERAZINE INJ 5 MG/ML 2 ML VIAL IV PRN (10:35)
--- NOTE | 2019-08-05 12:14 | PN ---
Subjective Date of Service: 08/05/19 Interval History: Patient states her pain is moderately improved and is non-existent at rest. Patient has no appetite, but denies over nausea. Patient denies F/C, N/V, abdominal pain, diarrhea, or other pain. Family History: Unchanged from Admission Social History: Unchanged from Admission Past Medical History: Unchanged from Admission Objective Active Medications: Dextrose (Dextrose 50% Vial 50 Ml*) 25 ml IV PUSH .FOR FS < 60 - SS PRN PRN Reason: FS < 60 Hydromorphone HCl (Dilaudid Inj1s*) 1 mg IV SLOW PU Q1H PRN PRN Reason: PAIN - SEVERE Last Admin: 08/04/19 19:03 Dose: 1 mg Sodium Chloride (Ns 0.9% 1000 Ml) 1,000 mls @ 125 mls/hr IV PER RATE [facility] Last Admin: 08/05/19 08:36 Dose: 125 mls/hr Piperacillin Sod/Tazobactam (Sod 3.375 gm/ Sodium Chloride) 100 mls @ 200 mls/ hr IVPB Q6H [facility] Last Admin: 08/05/19 09:39 Dose: 200 mls/hr Potassium Chloride (Potassium Chloride 20 Meq/100 Ml Ivpremix*) 20 meq in 100 mls @ 50 mls/hr IV Q2H [facility] Stop: 08/05/19 13:59 Last Admin: 08/05/19 10:29 Dose: 50 mls/hr Insulin Human Lispro (Humalog*) 0 units SUBCUT Q6HR [facility]; Protocol Last Admin: 08/05/19 11:27 Dose: Not Given Ondansetron HCl (Zofran Inj*) 4 mg IV Q4H PRN PRN Reason: NAUSEA/VOMITING Last Admin: 08/05/19 07:06 Dose: 4 mg Pantoprazole Sodium (Protonix Iv*) 40 mg IV Q24H [facility] Last Admin: 08/05/19 09:40 Dose: 40 mg Prochlorperazine Edisylate (Compazine Inj*) 10 mg IV Q6H PRN PRN Reason: NAUSEA/VOMITING Last Admin: 08/05/19 10:35 Dose: 10 mg Vital Signs - 8 hr 08/05/19 08/05/19 08/05/19 07:27 08:03 11:52 Temperature 98.5 F 98.1 F Pulse Rate 74 76 Respiratory 18 16 16 Rate Blood Pressure 154/84 148/72 (mmHg) O2 Sat by Pulse 96 98 Oximetry Oxygen Devices in Use Now: None Appearance: Patient is a 53yo female who appears stated age and is sitting in the bed in NAD. Eyes: No Scleral Icterus, PERRLA Ears/Nose/Mouth/Throat: NL Teeth, Lips, Gums, Clear Oropharnyx, Mucous Membranes Moist Neck: NL Appearance and Movements; NL JVP, Trachea Midline Respiratory: Symmetrical Chest Expansion and Respiratory Effort, Clear to Auscultation Cardiovascular: NL Sounds; No Murmurs; No JVD, RRR, No Edema Abdominal: No Hepatosplenomegaly, - - Diminished bowel sounds. Tender to palpation in RUQ. Lymphatic: No Cervical Adenopathy Extremities: No Edema, No Clubbing, Cyanosis Skin: No Rash or Ulcers, No Nodules or Sclerosis Neurological: Alert and Oriented x 3, NL Sensation, NL Muscle Strength and Tone , - - CN II-XII intact. Result Diagrams: 08/04/19 05:04 08/05/19 05:29 Assess/Plan/Problems-Billing Assessment: Patient is a 53yo female with a PMH for DM II, here with acute cholecystitis who is scheduled for surgery tomorrow. - Patient Problems (1) Acute cholecystitis Current Visit: Yes Status: Acute Code(s): K81.0 - ACUTE CHOLECYSTITIS SNOMED Code(s): 76004331 Comment: - Confirmed on US - Planned for surgery today - NPO, Pain control, Zosyn - Patient's RCRI is 0 indicating a 3.9% risk of MACE at 30 days. Patient has no cardiopulmonary funtional limitations and is capable of >4 METS. Patient is a low risk for this low risk surgery and is medically optimized without further cardiac testing. (2) DM II (diabetes mellitus, type II), controlled Current Visit: Yes Status: Acute Code(s): E11.9 - TYPE 2 DIABETES MELLITUS WITHOUT COMPLICATIONS SNOMED Code(s): 47419884 Comment: - Treated with SSI Q6H while NPO - Resume oral meds at D/C - Continue bariatric evaluation. (3) DVT prophylaxis Current Visit: Yes Status: Acute Code(s): Z29.9 - ENCOUNTER FOR PROPHYLACTIC MEASURES, UNSPECIFIED SNOMED Code(s): 782993371 Comment: - Low risk, Encourage Ambulation and SCDs (4) Full code status Current Visit: Yes Status: Acute Code(s): Z78.9 - OTHER SPECIFIED HEALTH STATUS SNOMED Code(s): 798758050 Status and Disposition: Observation pending Aissatou
[2019-08-05] MEDS ORDERED: Bupivacaine 0.25% EPI 200,000* 30 ML SDV ONE (13:55)
[2019-08-05] MEDS ORDERED: Rocuronium* 10 MG/ML VIAL ONE ×3 (13:57→16:44)
[2019-08-05] MEDS ORDERED: Dexamethasone IV* 4 MG/ML 1 ML (4 MG) ONE ×2 (14:29→16:38)
[2019-08-05] MEDS ORDERED: Propofol* 10 MG/ML 20 ML BTL ONE (14:29)
[2019-08-05] MEDS ORDERED: Midazolam* 1 MG/ML 5 ML VIAL (5 MG) ONE (14:30)
[2019-08-05] MEDS ORDERED: fentaNYL* 50 MCG/ML 5 ML VIAL (250 MCG VIAL) ONE (14:30)
[2019-08-05] MEDS ORDERED: Lidocaine 2% PF * 5 ML VIAL ONE (14:57)
[2019-08-05] MEDS ORDERED: Ketorolac INJ* 30 MG/ML 1 ML VIAL ONE (17:03)
[2019-08-05] MEDS ORDERED: Ondansetron INJ* 2 MG/ML VIAL ONE (17:03)
[2019-08-05] MEDS ORDERED: Sugammadex * 200 MG/2 ML VIAL IV PUSH ONE (17:15)
--- NOTE | 2019-08-05 17:32 | BRIEFOPN ---
Brief Operative/Procedure Note - Operation Details Pre-Op Diagnosis: ABD pain and cholelithiasis Post-Op Diagnosis: Cholelithiasis and acute on chronic cholecystitis Procedures: Laparoscopic cholecystectomy Surgeon(s)/Proceduralists: Dr. Dalal. Assist: NICOL Harkins and NICOL Gaiens Anesthesia: GETA. IVF: 2 liters Estimated Blood Loss: <50cc Findings: As above Specimen(s)/Culture(s) Description: Gallbladder Complications: None
[2019-08-05] MEDS: Ketorolac INJ* 30 MG/ML 1 ML VIAL IV SCH (19:47)
[2019-08-05 23:55] LABS: Urine Appearance Clear; Urine Bilirubin Negative (Negative); Urine Blood 2+ (Negative); Urine Color Straw; Urine Glucose 1+(50 mg/dL) (Negative); Urine Ketones 1+ (Negative); Urine Nitrite Negative (Negative); Urine Protein Negative (Negative); Urine Specific Gravity 1.009 (1.010-1.030); Urine Urobilinogen Negative (Negative)
[2019-08-05 23:59] LABS: Urine Bacteria Absent (Absent); Urine Red Blood Cell 3+(>10/hpf) (Absent); Urine White Blood Cell 1+(6-10/hpf) (Absent)
[2019-08-06] MEDS: Insulin LISPRO* 1 UNITS UNIT SUBCUT SCH ×5 (00:30→21:26)
[2019-08-06] MEDS: Ketorolac INJ* 30 MG/ML 1 ML VIAL IV SCH ×4 (02:13→20:12)
[2019-08-06] MEDS: Piperacillin/Tazobactam VIAL*) 3.375 GM in NS 0.9% 100 ML* 100 ML IVPB SCH ×4 (02:13→20:15)
[2019-08-06] MEDS: NS 0.9% 1000 ML** 1,000 ML IV SCH (04:03)
--- NOTE | 2019-08-06 06:23 | OP ---
CC: Bin Carranza NP; [facility] Bariatric Surgery Program * DATE OF OPERATION: 08/05/19 - ROOM #339 DATE OF : 69 SURGEON: Jony Dalal MD ASSISTANTS: 1. NICOL Wilde 2. NICOL Correa ANESTHESIOLOGIST: Dr. Friedman. ANESTHESIA: General with local. PRE-OP DIAGNOSES: 1. Right upper quadrant abdominal pain. 2. Cholelithiasis. POST-OP DIAGNOSES: 1. Right upper quadrant abdominal pain. 2. Cholelithiasis. 3. Acute on chronic cholecystitis. OPERATIVE PROCEDURE: Laparoscopic cholecystectomy. ESTIMATED BLOOD LOSS: Minimal. IV FLUIDS: 1 L crystalloid. WOUND CLASSIFICATION: III. SPECIMENS: Gallbladder with large contained gallstones. DRAINS: #10 TEJAS drain in the right upper quadrant. COMPLICATIONS: None. FINDINGS: There was a large amount of intraabdominal adhesions in both the upper and lower abdomen requiring an extensive lysis of adhesions to visualize the gallbladder and liver. Several extra ports were placed as per below. There was a small amount of serous ascitic fluid in the right upper quadrant, but the liver appeared to be normal. The gallbladder was mildly distended, whitish in color and thick walled with large stones within the lumen, but there was no evidence of communication with the bowel, and the visualized small bowel in the right upper quadrant as well as the colon appeared to be unremarkable. I was not able to visualize the lower abdominal quadrants due to the large amount of adhesions. BRIEF HISTORY: Ms. Sariah Boss is a 53-year-old woman who presented to the emergency room with worsening abdominal pain over the past several months. She has had known large gallstones and a CT scan that showed gallstones and some fluid in the right upper quadrant as well as the left lower quadrant. Ultrasound confirmed large gallstones. There was concern for possible communication between the gallbladder and the bowel, although she had no evidence of obstruction or gallstone ileus. After workup, she is now being taken to the operating room for a laparoscopy and laparoscopic cholecystectomy, possible open cholecystectomy. The procedure was discussed with the patient and the risks but not limited to bleeding, infection, intraabdominal abscess formation, injury to peritoneal and retroperitoneal structures, possibility of an open procedure, possibility of other indicated procedures depending on operative findings were all explained. In addition, the risks of anesthesia and deep venous thrombosis were all explained. DESCRIPTION OF PROCEDURE: Written informed consent was obtained, the abdomen was marked with indelible ink and preoperative antibiotics were administered. The patient was taken to the operating room and placed in the supine position. Sequential compression devices and a warming blanket were applied. General anesthesia was administered. A Francois catheter was inserted. The abdomen was prepped and draped in the usual sterile fashion. Time-out verification was completed. Initially, a small vertical incision was made just above the umbilicus in the midline and the fascia was divided. It was difficult to enter the true peritoneal cavity due to what appeared to be intraabdominal adhesions, and after several attempts at direct visualization, the decision was made to proceed with another access point. I avoided the right upper quadrant as that is where there was felt to be fluid and possible bowel involvement. Thus, a small transverse incision was made in the left upper quadrant in the abdominal wall under direct vision, the muscle was divided and peritoneal cavity was entered freely. A 12 mm blunt port was inserted and the abdomen was insufflated to 15 mmHg. A second 5 mm port was placed in the left lateral abdominal wall and using a LigaSure device, I was able to lyse a significant amount of adhesions in the upper half of the abdomen. Care was taken to prevent injury to the bowel, but once I was able to identify my midline and subsequently over to the left taking down the adhesions midway down the abdominal wall where I could place a second 12 mm port at my initial open attempt just above the umbilicus, a 5 mm port was placed in the epigastric port and two 5 mm ports were placed under direct vision in the right upper quadrant of the abdominal wall. It was noted that there was some serous yellowish clear fluid in the right upper quadrant up around the liver and the gallbladder itself. The liver was unremarkable. The gallbladder was identified. It was mildly distended and whitish in color and edematous appearing, but it was not suppuratively inflamed. There was no evidence of gangrene and there was no omentum adherent to it. It obviously contained large gallstones, but I was able to grasp the very tip of the gallbladder. This area was quite redundant and I suspect that this would explain the findings on the ultrasound and the CAT scan as to whether there may have been a communication between bowel and the gallbladder itself. The thickened peritoneum along the medial and lateral aspects of the infundibulum was taken down with careful dissection. This area was quite adherent and it was edematous, and with careful and meticulous dissection, I was able to identify the cystic duct and cystic artery. I took a considerable portion of the inferior part of the gallbladder off the liver bed using the critical view technique to assure myself of these 2 structures. The cystic duct appeared to be of expected and normal caliber and it was triply clipped and divided. Likewise, the cystic artery was clipped and divided as well. The gallbladder was then removed from the liver bed using a cautery and placed in an EndoCatch bag. The right upper quadrant was then thoroughly irrigated. I also evaluated the area of my previous lysis of adhesions, there was no obvious source of bleeding and I noticed no obvious bowel injury. I then placed a #10 TEJAS drain in the right upper quadrant and brought this out through the right lateral stab wound and sutured this to the skin with 3-0 Prolene suture. The gallbladder was then removed through the umbilical incision. It was necessary to extend the fascial incision to remove the gallbladder due to the size of the stones, but this was easily then removed. All ports were removed under direct vision of the camera. The umbilical fascia was closed with interrupted 0 Vicryl suture. The fascia in the left lateral abdominal wall was closed at the fascial level with interrupted 0 Vicryl suture. The skin at all incisions was approximated with subcuticular 4-0 Monocryl suture. Steri-Strips were applied. A drain sponge was placed over the TEJAS drain. The patient tolerated the procedure well, was taken to the recovery room in stable condition. [id number]/CPS #: [id number] LINDEN
[2019-08-06 06:42] LABS: Hematocrit 32 % (35-47); Hemoglobin 11.4 g/dL (12.0-16.0); Mean Corpuscular HGB Conc 35 g/dL (31-36); Mean Corpuscular Hemoglobin 33 pg (27-31); Mean Corpuscular Volume 92 fL (80-97); Platelet Count 152 10^3/uL (150-450); Red Cell Distribution Width 13 % (10-15); White Blood Count 10.1 10^3/uL (3.5-10.8)
[2019-08-06 07:00] LABS: Albumin 3.3 g/dL (3.2-5.2); Albumin/Globulin Ratio 1.4 (1-3); BUN/Creatinine Ratio 14.5 (8-20); Calcium 7.5 mg/dL (8.6-10.3); EGFR Non-African American 116.5 (>60); Globulin 2.3 g/dL (2-4); Potassium 3.4 mmol/L (3.5-5.0); Total Protein 5.6 g/dL (6.4-8.9)
[2019-08-06] MEDS: Pantoprazole IV* 40 MG IV SCH (08:25)
--- NOTE | 2019-08-06 11:11 | PN ---
Progress Note - Progress Note Date of Service: 08/06/19 SOAP: Subjective: Feels much better Pre-op pain resolved, minimal incisional pain Tolerating some po, no nausea Has been ambulating Objective: Temp Pulse Resp BP Pulse Ox 98 F 68 18 133/64 94 08/06/19 08:19 08/06/19 08:19 08/06/19 08:19 08/06/19 08:19 08/06/19 08:19 Intake & Output 08/04/19 08/05/19 08/06/19 08/07/19 06:59 06:59 06:59 06:59 Intake Total 2091 1216 5609 864 Output Total 725 1650 2040 180 Balance 1366 -434 3569 684 Weight 177 lb Intake: IV Fluids 2090 1216 5384 644 ABX - ZOSYN 101 127 105 KCL in Sterile Water 105 LR 2200 NS (0.9%) 443 438 7162 644 NS 100ML, Zosyn 3.375G 100 IVPB 225 220 ABX - ZOSYN 112 220 KCL 113 Oral 0 0 Output: TEJAS #1 290 30 Urine 650 1500 500 Torre 150 1200 150 Emesis 75 Estimated Blood Loss 50 Other: Estimated Blood Loss less than Comment PEX: Comfortable Lungs are clear Abd is soft and slightly distended. Incisions are CDI. TEJAS with non-bilious serous fluid in bulb Bowel sounds are present Ext with mild edema Laboratory Results - last 24 hr 08/05/19 08/05/19 08/05/19 11:21 18:29 19:52 WBC RBC Hgb Hct MCV MCH MCHC RDW Plt Count MPV Sodium Potassium Chloride Carbon Dioxide Anion Gap BUN Creatinine Est GFR ( Amer) Est GFR (Non-Af Amer) BUN/Creatinine Ratio Glucose POC Glucose (mg/dL) 143 H 150 H 159 H Calcium Total Bilirubin AST ALT Alkaline Phosphatase Total Protein Albumin Globulin Albumin/Globulin Ratio Urine Color Urine Appearance Urine pH Ur Specific [place] Urine Protein Urine Ketones Urine Blood Urine Nitrate Urine Bilirubin Urine Urobilinogen Ur Leukocyte Esterase Urine WBC (Auto) Urine RBC (Auto) Urine Bacteria Urine Glucose 08/05/19 08/06/19 08/06/19 23:30 00:25 05:49 WBC RBC Hgb Hct MCV MCH MCHC RDW Plt Count MPV Sodium Potassium Chloride Carbon Dioxide Anion Gap BUN Creatinine Est GFR ( Amer) Est GFR (Non-Af Amer) BUN/Creatinine Ratio Glucose POC Glucose (mg/dL) 175 H 147 H Calcium Total Bilirubin AST ALT Alkaline Phosphatase Total Protein Albumin Globulin Albumin/Globulin Ratio Urine Color Straw Urine Appearance Clear Urine pH 7.0 Ur Specific [place] 1.009 L Urine Protein Negative Urine Ketones 1+ A Urine Blood 2+ A Urine Nitrate Negative Urine Bilirubin Negative Urine Urobilinogen Negative Ur Leukocyte Esterase Negative Urine WBC (Auto) 1+(6-10/hpf) A Urine RBC (Auto) 3+(>10/hpf) A Urine Bacteria Absent Urine Glucose 1+(50 mg/dl) A 08/06/19 08/06/19 06:29 06:29 WBC 10.1 RBC 3.50 L Hgb 11.4 L Hct 32 L MCV 92 MCH 33 H MCHC 35 RDW 13 Plt Count 152 MPV 10.0 Sodium 138 Potassium 3.4 L Chloride 109 Carbon Dioxide 22 Anion Gap 7 BUN 8 Creatinine 0.55 Est GFR ( Amer) 141.0 Est GFR (Non-Af Amer) 116.5 BUN/Creatinine Ratio 14.5 Glucose 127 H POC Glucose (mg/dL) Calcium 7.5 L Total Bilirubin 1.00 AST 14 ALT 14 Alkaline Phosphatase 73 Total Protein 5.6 L Albumin 3.3 Globulin 2.3 Albumin/Globulin Ratio 1.4 Urine Color Urine Appearance Urine pH Ur Specific [place] Urine Protein Urine Ketones Urine Blood Urine Nitrate Urine Bilirubin Urine Urobilinogen Ur Leukocyte Esterase Urine WBC (Auto) Urine RBC (Auto) Urine Bacteria Urine Glucose Assessment: POD# 1 s/p lap appy for acute cholecystitis Plan: D/C IVF IV Zosyn Advance diet D/C torre Analgesia Pulmonary toilet PPI and Subq heparin Probable D/C tomorrow 08/07
[2019-08-06] MEDS: Heparin VIAL(*) 5000 UNITS/ML VIAL (FIVE THOUSAND) SUBCUT SCH ×2 (14:13→21:18)
--- NOTE | 2019-08-06 16:32 | PN ---
Subjective Date of Service: 08/06/19 Interval History: Ms. Boss states her surgery went well. She states she is eating "OK," stating that she has tolerated PO intake without n/v. She denies abd pain; she is passing flatus but has had no BM as of yet. She had her Francois removed appx 2h ago, and has yet to urinate. She has been ambulating the halls without difficulty. She has no other complaints today. Family History: Unchanged from Admission Social History: Unchanged from Admission Past Medical History: Unchanged from Admission Objective Active Medications: Dextrose (Dextrose 50% Vial 50 Ml*) 25 ml IV PUSH .FOR FS < 60 - SS PRN PRN Reason: FS < 60 Heparin Sodium (Porcine) (Heparin Vial(*)) 5,000 units SUBCUT Q8HR [facility] Last Admin: 08/06/19 14:13 Dose: 5,000 units Hydromorphone HCl (Dilaudid Inj1s*) 1 mg IV SLOW PU Q1H PRN PRN Reason: PAIN - SEVERE Last Admin: 08/04/19 19:03 Dose: 1 mg Piperacillin Sod/Tazobactam (Sod 3.375 gm/ Sodium Chloride) 100 mls @ 200 mls/ hr IVPB Q6H [facility] Last Admin: 08/06/19 14:13 Dose: 200 mls/hr Insulin Human Lispro (Humalog*) 0 units SUBCUT ACHS [facility]; Protocol Last Admin: 08/06/19 11:55 Dose: Not Given Ketorolac Tromethamine (Toradol Inj*) 30 mg IV Q6H [facility] Stop: 08/10/19 14:01 Last Admin: 08/06/19 14:13 Dose: 30 mg Ondansetron HCl (Zofran Inj*) 4 mg IV Q4H PRN PRN Reason: NAUSEA/VOMITING Last Admin: 08/05/19 07:06 Dose: 4 mg Pantoprazole Sodium (Protonix Iv*) 40 mg IV Q24H [facility] Last Admin: 08/06/19 08:25 Dose: 40 mg Prochlorperazine Edisylate (Compazine Inj*) 10 mg IV Q6H PRN PRN Reason: NAUSEA/VOMITING Last Admin: 08/05/19 10:35 Dose: 10 mg Vital Signs: Temp Pulse Resp BP Pulse Ox 98.3 F 65 18 146/57 99 08/06/19 15:44 08/06/19 15:44 08/06/19 15:44 08/06/19 15:44 08/06/19 15:44 Oxygen Devices in Use Now: Nasal Cannula Appearance: Mr. Boss is an overweight, middle-age woman who is sitting up in bed. She appears comfortable and in no acute distress. Eyes: No Scleral Icterus, PERRLA Ears/Nose/Mouth/Throat: NL Teeth, Lips, Gums, Clear Oropharnyx, Mucous Membranes Moist Neck: NL Appearance and Movements; NL JVP, Trachea Midline Respiratory: Symmetrical Chest Expansion and Respiratory Effort, Clear to Auscultation Cardiovascular: NL Sounds; No Murmurs; No JVD, RRR, No Edema Abdominal: - - VS hypoactive; mild abdominal distention; CDI dressing to surgical incision sites; TEJAS bulb in place with small amount of thin, blood- tinged serosang fluid in bulb Extremities: No Edema, No Clubbing, Cyanosis Neurological: Alert and Oriented x 3 Result Diagrams: 08/06/19 06:29 08/06/19 06:29 Assess/Plan/Problems-Billing Assessment: Patient is a 53yo female with a PMH for DM II, here with acute cholecystitis, post-cholecystectomy 08/05. - Patient Problems (1) Acute cholecystitis Comment: -confirmed on GB US -management per surgical team -POD 1 cholecystectomy -NPO, pain control, Zosyn (2) DM II (diabetes mellitus, type II), controlled Comment: -BS 120-140's -change FS to AC, HS with lispro ss coverage -resume oral meds at D/C -continue bariatric evaluation (3) DVT prophylaxis Comment: -low risk -ambulation and SCDs (4) Full code status Status and Disposition: Inpatient. Discharge per surgical team. Hospitalist team will sign off at this time. Thank you for allowing us to participate in the care of this patient. Please re-consult as needed.
[2019-08-07] MEDS: Ketorolac INJ* 30 MG/ML 1 ML VIAL IV SCH ×2 (02:15→07:53)
[2019-08-07] MEDS: Piperacillin/Tazobactam VIAL*) 3.375 GM in NS 0.9% 100 ML* 100 ML IVPB SCH ×2 (02:19→07:54)
[2019-08-07] MEDS: Heparin VIAL(*) 5000 UNITS/ML VIAL (FIVE THOUSAND) SUBCUT SCH (05:54)
[2019-08-07 07:43] VITALS: BP 145/77
[2019-08-07] MEDS: Insulin LISPRO* 1 UNITS UNIT SUBCUT SCH (07:48)
[2019-08-07] MEDS: Pantoprazole IV* 40 MG IV SCH (07:53)
--- NOTE | 2019-08-07 09:14 | DS ---
Discharge Summary: Admit date: 08/03/19 Discharge date: 08/07/19 Admit Diagnosis: ABD pain and cholelithiasis Discharge Diagnosis: Cholecystitis Condition at discharge: Stable PEX: General- Well appearing, in no acute distress or discomfort Heart-RRR, no MRG Lungs-CTA, no WRR ABD- Bowel sounds present, non distended, minimally tender around incisions and RUQ, incisions C/D/I with no erythema or warmth. 12 mL serosanguineous fluid in TEJAS drain. Extremities- Calves nontender, distal pulses intact bilaterally. Procedure performed: Cholecystectomy on 08/05/19 Hospital course: Admitted for above named diagnosis and underwent cholecystectomy. She tolerated the procedure well and was transferred to the surgical floor for post operative care. Francois catheter removed after operation on the same day. Placed on zosyn, which was discontinued POD#2 before discharge. Drainage from TEJAS drain trended downwards to 40 mL and was removed POD #2 before discharge. She has been tolerating PO intake, ambulating, and at time of discharge is feeling well with minimum pain, no N/V, is passing flatus. No BM yet. She is making urine adequately. Reports she feels much better than before surgery. Vitals and labs during stay are unremarkable. Discharge instructions were given to the pt regarding diet, medications, activity, and post operative follow up. All questions were answered. Discharged home in stable condition on 08/07/19.
--- NOTE | 2019-08-07 09:14 | PN ---
Progress Note - Progress Note Date of Service: 08/07/19 SOAP: Subjective: Doing well-tolerating po, no nausea Pre-op pain resolved Passing some flatus Ambulating, pain well controlled Objective: Temp Pulse Resp BP Pulse Ox 98.7 F 63 16 145/77 94 08/07/19 07:42 08/07/19 07:42 08/07/19 07:42 08/07/19 07:42 08/07/19 07:42 Intake & Output 08/05/19 08/06/19 08/07/19 08/08/19 06:59 06:59 06:59 06:59 Intake Total 1216 5609 1294 139 Output Total 1650 2040 1317 140 Balance -434 3569 -23 -1 Intake: IV Fluids 1216 5384 664 30 ABX - ZOSYN 127 105 KCL in Sterile Water 105 LR 2200 NS (0.9%) 984 1989 664 30 NS 100ML, Zosyn 3.375G 100 IVPB 225 330 109 ABX - ZOSYN 112 330 109 KCL 113 Oral 0 0 300 Output: TEJAS #1 290 80 40 Urine 7249 061 7766 100 Francois 150 1200 150 Estimated Blood Loss 50 Other: # Bowel Movements 0 Estimated Blood Loss less than Comment PEX: Comfortable Lungs are clear Abd is soft and slightly distended. Bowel sounds present. Incisions CDI. TEJAS with small amount of clear serous drainage in bulb Assessment: POD# 2 s/p lap choly for acute and chronic cholecystitis DM Plan: D/C home today No further antibiotics, no opiods-NSAID's for pain D/C TEJAS this morning prior to discharge Resume oral DM meds per hospitalist Outpatient follow up Care discussed with patient.
== END 2019-08-07 11:12 | disposition home or self-care (01) | DRG 263 ==
LOC: ED 10:20 → SSU 15:47 → OBSVTOIN 08-05 11:00 → INTOOBSV 08-05 15:55 → OBSVTOIN 08-05 15:55
PROVIDERS: ADMIT Surgery; ATTEND Surgery
PROC: 0DNW4ZZ Release Peritoneum, Percutaneous Endoscopic Approach (ICD-10-PCS; 2019-08-05)
PROC: 0FT44ZZ Resection of Gallbladder, Percutaneous Endoscopic Approach (ICD-10-PCS; principal; 2019-08-05 13:00)
DX: K80.12 Calculus of gallbladder with acute and chronic cholecystitis without obstruction (principal); E11.9 Type 2 diabetes mellitus without complications; E78.00 Pure hypercholesterolemia, unspecified; E66.9 Obesity, unspecified; K66.0 Peritoneal adhesions (postprocedural) (postinfection); F41.9 Anxiety disorder, unspecified; Z79.84 Long term (current) use of oral hypoglycemic drugs; Z68.30 Body mass index [BMI] 30.0-30.9, adult; Z88.1 Allergy status to other antibiotic agents
CPT/HCPCS: 36415; 74176; 76705; 80053; 81003; 81015; 83605; 83690; 85025; 85027; 86140; 87086; 88304; 96374; 96375; 96376; 99284; G0378; J0780; J1100; J1170; J1644; J1885; J2250; J2405; J2543; J2704; J3010; J3480